=== PATIENT | female | born 1995 | race Caucasian/White ===

== ENCOUNTER 2016-09-19 11:01 | Emergency (ER) | payer SELFPAY ==
[~2016-09-19] VITALS: Ht 167.6 cm; Wt 54.0 kg
[2016-09-19 11:43] VITALS: BP 125/74
== END 2016-09-19 14:50 | disposition left against medical advice (07) ==
LOC: ER 14:48
DX: J02.9 Acute pharyngitis, unspecified (principal); Z53.21 Procedure and treatment not carried out due to patient leaving prior to being seen by health care provider